=== PATIENT | female | born 1950 | race Caucasian/White ===

== ENCOUNTER → 2020-11-25 | Outpatient (CLI) | payer BC | END | disposition home or self-care (01) | LOC: MAMMO 10:35 | PROVIDERS: ATTEND Internal Medicine | DX: Z12.31 Encounter for screening mammogram for malignant neoplasm of breast (principal); N64.89 Other specified disorders of breast; N63.21 Unspecified lump in the left breast, upper outer quadrant | CPT/HCPCS: 77067 ==

== ENCOUNTER → 2020-12-06 | Outpatient (CLI) | payer BC | END | disposition home or self-care (01) | LOC: RAD 09:39 | DX: N63.21 Unspecified lump in the left breast, upper outer quadrant (principal); N64.89 Other specified disorders of breast | CPT/HCPCS: 76641; 77065 ==

== ENCOUNTER → 2020-12-22 | Day surgery (SDC) | payer BC ==
[~2020-12-22] MED LIST: LIDOCAINE HCL/EPINEPHRINE 1%-EPI 1:100,000 20 ML VIAL ONE; SODIUM BICARBONATE 4% (2.4MEQ) 5ML VIAL IV ONE
== END | disposition home or self-care (01) ==
LOC: RAD 08:30
DX: N63.20 Unspecified lump in the left breast, unspecified quadrant (principal); R92.8 Other abnormal and inconclusive findings on diagnostic imaging of breast; Z79.899 Other long term (current) drug therapy; Z20.822 Contact with and (suspected) exposure to COVID-19
CPT/HCPCS: 19083; 87426; 88305; A4648; J3490